=== PATIENT | female | born 1975 | race Caucasian/White ===

== ENCOUNTER 2018-08-17 20:19 | Inpatient (IN) | payer MEDICAID, OTHER, SELFPAY ==
[2018-08-17 21:01] VITALS: BMI 28.1
[2018-08-17] MEDS: Lactated Ringer's 1,000 ML IV SCH (21:05)
[2018-08-17] MEDS ORDERED: Methylergonovine 0.2 MG/ML VIAL IM PRN (21:16)
[2018-08-17] MEDS ORDERED: Carboprost 250 MCG/ML AMP IM PRN (21:16)
[2018-08-17] MEDS ORDERED: Misoprostol 200 MCG TAB PR PRN (21:16)
[2018-08-17] MEDS ORDERED: Butorphanol Tartrate 1 MG/ML VIAL SLOW IVP PRN (21:16)
[2018-08-17] MEDS ORDERED: HYDROcodone/Acetaminophen 5/325 mg Tablet PO PRN (21:16)
[2018-08-17] MEDS ORDERED: NS / Oxytocin 40 units/1000ml 1,000 ML IV PRN (21:16)
[2018-08-17] MEDS ORDERED: Ibuprofen 800 MG TAB PO PRN (21:16)
[2018-08-17] MEDS ORDERED: Diphenoxylate HCl/Atropine Tablet PO PRN (21:16)
[2018-08-17] MEDS ORDERED: Lidocaine 1% (PF) 30 ML VIAL SC PRN (21:16)
[2018-08-17] MEDS ORDERED: Ondansetron PF 4 MG/2 ML Vial IVP PRN (21:16)
[2018-08-17] MEDS ORDERED: NS w/ Oxytocin 10 units 500 ML IV SCH (21:30)
[2018-08-17 21:33] LABS: Hemoglobin 10.7 g/dL (12.0-16.0); Mean Corpuscular HGB CONC 31.9 g/dL (32.0-36.0); Mean Corpuscular Hemoglobin 25.3 pg (27.0-31.0); Mean Corpuscular Volume 79.3 fL (78.0-98.0); Platelet Count 206 thou/uL (130-400); RBC Distribution Width 14.7 % (11.5-14.5); Red Blood Cell (RBC) Count 4.23 mill/uL (4.20-5.40); White Blood Cell (WBC) Count 6.4 thou/uL (4.8-10.8)
[2018-08-17] MEDS: Misoprostol 100 MCG TAB VAG SCH (21:45)
[2018-08-17 22:02] LABS: Syphilis Antibody Nonreactive (Nonreactive); Syphilis Antibody Index 0.04 S/CO (<1.00 Non-Reactive)
[2018-08-17 22:19] LABS: Glucose 105 mg/dL (70-105)
[2018-08-17 23:59] LABS: HBSAg Index 0.17 S/CO (0-0.99); Hep B Surf Ag Non-Reactive S/CO (NonReactive)
[2018-08-18] MEDS: Misoprostol 100 MCG TAB VAG SCH ×2 (01:46→06:05)
[2018-08-18] MEDS: Lactated Ringer's 1,000 ML IV SCH ×3 (04:20→20:19)
[2018-08-18] MEDS ORDERED: Misoprostol 100 MCG TAB ONE (10:35)
[2018-08-18] MEDS: NS w/ Oxytocin 10 units 500 ML IV SCH (20:32)
[2018-08-18] MEDS: Misoprostol 100 MCG TAB PO SCH (20:32)
[2018-08-19] MEDS: Misoprostol 100 MCG TAB PO SCH ×2 (00:30→04:31)
[2018-08-19] MEDS: NS w/ Oxytocin 10 units 500 ML IV SCH (00:35)
[2018-08-19] MEDS: Lactated Ringer's 1,000 ML IV SCH (06:24)
[2018-08-19] MEDS ORDERED: Bicitra 30 ML UDCUP PO SCH (06:45)
[2018-08-19] MEDS ORDERED: CEFAZOLIN/Water 2 GM/20 ML SYRINGE SLOW IVP SCH (06:45)
[2018-08-19] MEDS ORDERED: CEFAZOLIN 2 GM/50 ML BAG ONE (10:11)
[2018-08-19] MEDS ORDERED: Bupivacaine 0.75% W/DEXTROSE 8.25% 2 ML AMP ONE (11:58)
[2018-08-19] MEDS ORDERED: Oxytocin 10 UNITS/ML VIAL ONE ×2 (11:58→12:24)
[2018-08-19] MEDS ORDERED: Lidocaine 1% PF 5 ML VIAL ONE (11:58)
[2018-08-19] MEDS ORDERED: Morphine PF 1 MG/ML SYR ONE (11:58)
[2018-08-19] MEDS ORDERED: ePHEDrine/0.9% NaCl/PF SYRINGE 50 mg/10 ml ONE ×2 (11:59→14:29)
[2018-08-19] MEDS ORDERED: Ketorolac Tromethamine 30 MG/ML VIAL ONE ×2 (12:30→14:29)
[2018-08-19] MEDS ORDERED: Ondansetron PF 4 MG/2 ML Vial ONE ×2 (12:30→14:29)
[2018-08-19] MEDS ORDERED: Fentanyl 100 MCG/2 ML VIAL ONE (12:38)
[2018-08-19] MEDS ORDERED: HYDROcodone/Acetaminophen 5/325 mg Tablet PO PRN (15:12)
[2018-08-19] MEDS ORDERED: NS / Oxytocin 40 units/1000ml 1,000 ML IV SCH (15:12)
[2018-08-19] MEDS ORDERED: Ondansetron PF 4 MG/2 ML Vial IVP PRN ×2 (15:12→16:10)
[2018-08-19] MEDS ORDERED: Simethicone Chewable 80 MG TAB PO PRN (15:12)
[2018-08-19] MEDS ORDERED: Bisacodyl 10 MG SUPP PR PRN (15:12)
[2018-08-19] MEDS ORDERED: diphenhydrAMINE 25 MG CAP PO PRN (15:12)
[2018-08-19] MEDS ORDERED: Meperidine HCl/PF 25 MG/ML VIAL IM PRN (15:12)
[2018-08-19] MEDS ORDERED: diphenhydrAMINE 50 MG/ML VIAL IVP PRN (16:10)
[2018-08-19] MEDS ORDERED: Naloxone HCl 0.4 mg/ml Vial IVP PRN ×2 (16:10)
[2018-08-19] MEDS ORDERED: Eucerin (Mineral Oil/Petrolatum,White) 30 gm Jar TOP PRN (16:10)
[2018-08-19] MEDS ORDERED: Promethazine HCl 25 MG SUPP PR PRN (16:10)
[2018-08-19] MEDS ORDERED: Promethazine HCl 25 MG/ML VIAL IM PRN (16:10)
[2018-08-19] MEDS ORDERED: Naloxone HCl 0.4 mg/ml Vial IV PRN (16:10)
[2018-08-19] MEDS ORDERED: Communication Order-Pharmacy FS SCH (16:15)
[2018-08-19] MEDS: Ferrous Sulfate 325 MG TAB PO SCH (17:30)
[2018-08-19] MEDS: Ibuprofen 800 MG TAB PO SCH ×2 (17:30→23:53)
[2018-08-19] MEDS: Ketorolac Tromethamine 30 MG/ML VIAL IVP PRN (18:21)
[2018-08-19] MEDS: Docusate Calcium (SURFAK) 240 MG CAP PO SCH (23:53)
[2018-08-20] MEDS: Ketorolac Tromethamine 30 MG/ML VIAL IVP PRN (00:39)
[2018-08-20] MEDS: HYDROcodone/Acetaminophen 5/325 mg Tablet PO PRN ×3 (05:32→23:12)
[2018-08-20 07:17] LABS: Hemoglobin 8.5 g/dL (12.0-16.0); Mean Corpuscular HGB CONC 32.2 g/dL (32.0-36.0); Mean Corpuscular Hemoglobin 26.2 pg (27.0-31.0); Mean Corpuscular Volume 81.4 fL (78.0-98.0); Mean Platelet Volume 10.4 fL (7.4-10.4); Platelet Count 157 thou/uL (130-400); Red Blood Cell (RBC) Count 3.25 mill/uL (4.20-5.40)
[2018-08-20] MEDS: Ferrous Sulfate 325 MG TAB PO SCH ×2 (09:35→17:25)
[2018-08-20] MEDS: Docusate Calcium (SURFAK) 240 MG CAP PO SCH ×2 (09:35→21:32)
[2018-08-20] MEDS: Prenatal Vitamin 1 TAB PO SCH (09:35)
[2018-08-20] MEDS: Ibuprofen 800 MG TAB PO SCH ×3 (09:37→23:12)
[2018-08-21] MEDS: Prenatal Vitamin 1 TAB PO SCH (09:01)
[2018-08-21] MEDS: Ibuprofen 800 MG TAB PO SCH ×2 (09:01→15:36)
[2018-08-21] MEDS: Ferrous Sulfate 325 MG TAB PO SCH (09:01)
[2018-08-21] MEDS: HYDROcodone/Acetaminophen 5/325 mg Tablet PO PRN (09:01)
[2018-08-21] MEDS: Docusate Calcium (SURFAK) 240 MG CAP PO SCH (09:01)
[2018-08-21 13:08] VITALS: BP 111/53; TEMP 97.7
--- NOTE | 2018-08-24 22:04 | EKG ---
Test Reason : Blood Pressure : / mmHG Vent. Rate : 053 BPM Atrial Rate : 091 BPM P-R Int : 000 ms QRS Dur : 080 ms QT Int : 444 ms P-R-T Axes : 060 046 029 degrees QTc Int : 416 ms Sinus rhythm with 2nd degree A-V block ([place]ob[place] I) with 2:1 A-V conduction Abnormal ECG No previous ECGs available Confirmed by FRANCISCO BRADLEY (2) on 08/24/2018 10:03:51 PM Referred By: TALISHA Confirmed By:FRANCISCO BRADLEY
== END 2018-08-21 15:50 | disposition home or self-care (01) | DRG 788 ==
LOC: L&D 20:19 → 3SW 08-19 15:45
PROVIDERS: ADMIT Family Medicine; ATTEND Family Medicine
PROC: 10D00Z1 Extraction of Products of Conception, Low, Open Approach (ICD-10-PCS; principal; 2018-08-17)
PROC: 4A0HXCZ Measurement of Products of Conception, Cardiac Rate, External Approach (ICD-10-PCS; 2018-08-17)
DX: O24.420 Gestational diabetes mellitus in childbirth, diet controlled (principal); Z3A.38 38 weeks gestation of pregnancy; Z37.0 Single live birth; O61.9 Failed induction of labor, unspecified
CPT/HCPCS: 36415; 36416; 51702; 82947; 85027; 86780; 86850; 86900; 86901; 87340; 93005; 93010; J1885; J2001; J2274; J2405; J2590; J3010; J3490